=== PATIENT | female | born 1950 | race Caucasian/White ===

== ENCOUNTER 2017-01-20 05:07 | Inpatient (IN) | payer OTHER ==
[2017-01-02 11:42] VITALS: BMI 28.0
--- NOTE | 2017-01-02 12:13 | PAT Medication Instructions ---
Service Date Jan 02, 2017. Current Home Medication List Gabapentin (Neurontin), 100 MG PO TID Hydrochlorothiazide (Hctz), 25 MG PO QAM Hydrocodone/Acetaminophen 5MG/325MG ([place] 5MG/325MG), 0.5-1 TAB PO PRN PRN for Pain Ibuprofen Tab (Advil), 400 MG PO PRN Loratadine (Claritin), 10 MG PO PRN Multivitamin (Multivitamin), 1 TAB PO QAM Naproxen (Aleve), 220 MG PO PRN Pravastatin Sod (Pravastatin Sodium), 40 MG PO HS Medication Instructions For Your Scheduled Surgery - Hold the following medications the morning of surgery: Hydrochlorothiazide (Hctz), 25 MG PO QAM Loratadine (Claritin), 10 MG PO PRN Multivitamin (Multivitamin), 1 TAB PO QAM Ibuprofen Tab (Advil), 400 MG PO PRN (otherwise okay to continue per surgeon) Naproxen (Aleve), 220 MG PO PRN(otherwise okay to continue per surgeon) - Take the following medications the morning of surgery with a sip of water OTHERWISE NOTHING TO EAT OR DRINK AFTER MIDNIGHT: Hydrocodone/Acetaminophen 5MG/325MG ([place] 5MG/325MG), 0.5-1 TAB PO PRN PRN for Pain (may take if needed up to 4 hours prior to surgery) Gabapentin (Neurontin), 100 MG PO TID - Take the following medications as scheduled the night before surgery: Hydrocodone/Acetaminophen 5MG/325MG ([place] 5MG/325MG), 0.5-1 TAB PO PRN PRN for Pain Gabapentin (Neurontin), 100 MG PO TID Pravastatin Sod (Pravastatin Sodium), 40 MG PO HS If you have any questions please call us at [phone] or [phone] or [phone]
[2017-01-02 13:23] LABS: URINE APPEARANCE CLEAR (CLEAR); URINE BILIRUBIN NEG (NEG); URINE COLOR YELLOW; URINE NITRITE NEG (NEG); URINE SPECIFIC GRAVITY 1.018 (1.000-1.030); UROBILINOGEN NEG (NEG)
[2017-01-02 13:24] LABS: PARTIAL THROMBOPLASTIN RATIO 1.1; PROTHROMBIN TIME (PATIENT) 10.5 SECONDS (9.0-12.0)
[2017-01-02 13:30] LABS: BASO % 0.4 %; BASO ABS # 0.02 K/uL (0-0.2); BUN/CREATININE RATIO 26.9 (10-20); CALCIUM 8.9 mg/dl (8.5-10.1); COMPLETE YES; CREATININE 0.67 mg/dl (0.60-1.20); EOS % 1.2 %; IG% 0.2 %; LYMPH ABS # 2.34 K/uL (1.2-3.4); MEAN CELL VOLUME 94.3 fL (80-100); MEAN CORPUSCULAR HGB CONC 33.9 g/dl (32-36); MEAN PLATELET VOLUME 9.5 fL (7.4-10.4); MONO % 8.5 %; NEUT % 44.7 %; PLATELET COUNT 362 K/uL (130-400); POTASSIUM 3.6 mmol/L (3.5-5.1)
[2017-01-02 13:31] LABS: MANUAL MICROSCOPIC REQUIRED? NO; REVIEW REQ? NO
[2017-01-02 13:33] LABS: ALB/GLOB RATIO 1.4 (0.9-2)
--- NOTE | 2017-01-18 17:06 | History and Physical ---
History & Physical Date Jan 18, 2017. Chief Complaint RIGHT KNEE PAIN History of Present Illness The patient is a 67 year old female with complaints of for about 3 years now. Has tried all forms of other conservative therapy with minimal relief. Life has been terrible, limping and using a cane. Pt is ready for TKA Additional History Hepatic Disease: No Endocrine Disorder: No Kidney Disease: No Hypertension: Yes Heart Disease: No Bleeding Tendencies: No Infectious Diseases: No Other: sleep apnea Allergies Coded Allergies: No Known Allergies (Unverified , 01/02/17) Home Medications Scheduled Gabapentin (Neurontin), 100 MG PO TID Hydrochlorothiazide (Hctz), 25 MG PO QAM Ibuprofen Tab (Advil), 400 MG PO PRN Loratadine (Claritin), 10 MG PO PRN Multivitamin (Multivitamin), 1 TAB PO QAM Naproxen (Aleve), 220 MG PO PRN Pravastatin Sod (Pravastatin Sodium), 40 MG PO HS Scheduled PRN Hydrocodone/Acetaminophen 5MG/325MG ([place] 5MG/325MG), 0.5-1 TAB PO PRN PRN for Pain Physical Examination Skin: warm/dry, no rash Eyes: normal inspection, EOMI, sclerae normal ENT: normal ENT inspection, pharynx normal Head: normocephalic, atraumatic Neck: supple, no adenopathy, trachea midline Respiratory/Chest: lungs clear, normal breath sounds, no respiratory distress Cardiovascular: regular rate, rhythm, no edema, no murmur Abdomen / GI: normal bowel sounds, non tender Back: normal inspection Extremities: normal inspection, normal range of motion, + pertinent finding ( pain and crepitation with rom right knee) Diagnosis DJD RIGHT KNEE Plan of Treatment PLAN IS ADMIT AND RIGHT TOTAL KNEE REPLACEMENT
[~2017-01-20] VITALS: Ht 152.4 cm; Wt 71.0 kg
[2017-01-20] VITALS (11 sets, daily range): BP systolic 92–150; BP diastolic 51–80; PULSE 54–82; TEMP 36.6–36.9; O2SAT 93–99; Ht 152.4 cm; Wt 71.0 kg
[~2017-01-20 05:07] MED LIST: CLR10 PO; GABA-112 PO; HYDR-5688 PO; HYDR25TA4 PO; IBUP-103 PO; MULT-506 PO; NAPR1TAB9 PO; PRVC40 PO
[2017-01-20] MEDS ORDERED: LACTATED RINGER'S 1000ML 500 ML IV ONE (06:00)
[2017-01-20] MEDS ORDERED: CEFAZOLIN 1000MG/55 ML D5W 55 ML IV SCH (06:00)
[2017-01-20] MEDS ORDERED: LACTATED RINGER'S 1000ML 1,000 ML IV SCH ×2 (06:00)
[2017-01-20] MEDS ORDERED: CeleBREX 200 MG CAP PO SCH (06:00)
[2017-01-20] MEDS ORDERED: ROPIVACAINE 5MG/ML 30 ML 150 MG, BUPIVACAINE/EPINEPHR 0.5% MPF 30 ML, KETOROLAC TROMETH... INFIL SCH ×7 (06:00)
[2017-01-20] MEDS ORDERED: FAMOTIDINE 20 MG TAB PO SCH (06:00)
[2017-01-20] MEDS ORDERED: ACETAMINOPHEN 500 MG TAB PO SCH (06:00)
[2017-01-20] MEDS ORDERED: DEXAMETHASONE 4 MG TAB PO SCH (06:00)
[2017-01-20] MEDS ORDERED: METOCLOPRAMIDE HCL 10 MG TAB PO SCH (06:00)
[2017-01-20] MEDS: TRANEXAMIC ACID INJ 1,000 MG in SODIUM CHLORIDE 0.9% 100ML 100 ML IV SCH ×2 (06:03→06:30)
[2017-01-20] MEDS ORDERED: POVIDONE-IODINE OP SOLN 30 ML BTL ONE (06:33)
[2017-01-20] MEDS ORDERED: BACITRACIN 50000 UNIT VIAL ONE (06:33)
[2017-01-20] MEDS ORDERED: ORTHO JOINT ANESTHETIC ONE (06:33)
[2017-01-20] MEDS ORDERED: LIDOCAINE HCL 2% 2 ML VIAL (20MG/ML) ONE (06:40)
[2017-01-20] MEDS ORDERED: MIDAZOLAM HCL 1 MG/ML 2ML VIAL ONE (06:40)
[2017-01-20] MEDS ORDERED: PROPOFOL IV EMULSION 10 MG/ML 20 ML VIAL IV ONE (06:40)
--- NOTE | 2017-01-20 06:49 | History & Physical Bridge Note ---
H&P Re-Evaluation Bridge Note: I have examined the patient, reviewed the History & Physical and in the interval since the performance of the History & Physical I have noted the following changes of clinical significance: No changes noted
[2017-01-20] MEDS ORDERED: BUPIVACAINE 0.25% 30 ML VIAL ONE (06:54)
[2017-01-20] MEDS ORDERED: BUPIVACAINE 0.5 % 5 MG/1 ML PF 10ML VIAL ONE (06:54)
[2017-01-20] MEDS ORDERED: EpINEphrine INJ 1MG/ML AMP 1 MG/ML AMP ONE (06:54)
[2017-01-20] MEDS ORDERED: ONDANSETRON INJ 2 MG/ML 2 ML VIAL ONE (07:25)
[2017-01-20] MEDS ORDERED: PHENYLEPHRINE 100MCG/ML 5ML SYR ONE (07:49)
[2017-01-20] MEDS ORDERED: PHENYLEPHRINE 100MCG/ML 5ML SYR IV PRN (08:00)
[2017-01-20] MEDS ORDERED: EpHEDrine SULFATE INJ 50 MG/ML AMP IV PRN (08:00)
[2017-01-20] MEDS ORDERED: HYDROmorphone INJ 2 MG/ML SYR/VIAL IV PRN (08:00)
[2017-01-20] MEDS ORDERED: NALOXONE HCL 0.4 MG/1 ML VIAL/CARP IV PRN (08:00)
[2017-01-20] MEDS ORDERED: FLUMAZENIL 0.1 MG/1 ML 10 ML VIAL IV PRN (08:00)
[2017-01-20] MEDS ORDERED: ONDANSETRON INJ 2 MG/ML 2 ML VIAL IV PRN (08:00)
[2017-01-20] MEDS ORDERED: ATROPINE SULFATE 0.1 MG/ML 5ML SYR IV PRN (08:00)
[2017-01-20] MEDS ORDERED: MEPERIDINE HCL 25 MG/ML CARP IV PRN (08:00)
[2017-01-20] MEDS ORDERED: FENTANYL CITRATE INJ 50 MCG/1 ML 2 ML VIAL IV PRN (08:00)
[2017-01-20] MEDS ORDERED: LABETALOL HCL IV 5 MG/ML 20ML IV PRN (08:00)
[2017-01-20] MEDS: SODIUM CHLORIDE 0.9% 1000ML 1,000 ML IV SCH ×2 (08:14→18:23)
[2017-01-20] MEDS ORDERED: ALUMINUM/MAGNESIUM/SIMETH (MAALOX MAX) 30 ML UDC PO PRN (08:15)
[2017-01-20] MEDS ORDERED: BISACODYL 10 MG SUPP PR PRN (08:15)
[2017-01-20] MEDS ORDERED: MAGNESIUM HYDROXIDE SUSP 30 ML UDC PO PRN (08:15)
[2017-01-20] MEDS ORDERED: ZOLPIDEM TARTRATE 5 MG TAB PO PRN (08:15)
--- NOTE | 2017-01-20 08:21 | [facility] Post Operative Brief Note ---
Immediate Operative Summary Operative Date Jan 20, 2017. Pre-Operative Diagnosis Degenerative Joint Disease Right Knee Post-Operative Diagnosis Degenerative Joint Disease Right Knee Procedure(s) Performed Right Total Knee Arthroplasty Surgeon Dr. Casper After School Program Assistant Surgeon(s) KAE Brand Estimated Blood Loss 30 ml Findings As above Specimens A. Right Knee Bone and Tissue Complication(s) None Disposition Recovery Room / PACU
[2017-01-20] MEDS ORDERED: METOPROLOL TARTRATE 1 MG/ML VIAL ONE (08:49)
[2017-01-20] MEDS ORDERED: METOPROLOL TARTRATE 1 MG/ML VIAL IV STA (08:51)
--- NOTE | 2017-01-20 09:42 | [facility] Operative Report ---
Operative Report Operative Date Jan 20, 2017. Pre-Operative Diagnosis Degenerative Joint Disease Right Knee Post-Operative Diagnosis Degenerative Joint Disease Right Knee Procedure(s) Performed Right Total Knee Arthroplasty Surgeon Dr. Casper Rotary Swaging Machine Operator Surgeon(s) KAE Brand Estimated Blood Loss 30 ml Findings As above Specimens A. Right Knee Bone and Tissue Complication(s) None Disposition Recovery Room / PACU Description of Procedure IMPLANTS USED: [employer]hew journey 2 knee size 3 cemented femoral component, a size 2 tibial component, a size 10 PS insert and a size 29 all polyethylene patella INDICATIONS: pleasant (female) who has unfortunately failed all forms of conservative measures. Therefore, they have decided to undergo elective surgical intervention. All risks and benefits of the surgery were discussed with the patient and the family in entirety. PROCEDURE: The patient was brought to the operating room and properly identified by myself, anesthesia, and staff. Patient was given a spinal anesthesia and placed on the operating table in the supine position. . The leg was then prepped and draped in usual sterile fashion. We made a standard midline approach over the patella and dissected down through the subcutaneous tissue to identify the capsule and performed a medial capsulotomy with the patella everted and the knee flexed.The patient matched implant was then put onto the femur. The femur measured to be a size [3]. This was then put into place. We made the appropriate cuts and then placed a retractor behind the proximal tibia to retract anteriorly. We then placed the patient matched knee implant on the tibia. It measured to be a size [2]. A size[2] guide was then put in place. We used the tibial punch then put the trial components into place. We had very good range of motion, excellent stability, and excellent patella tracking. We removed the trial components and irrigated the wound. We impacted the components in place using antibiotic cement. All excess cement was removed. We then irrigated the wound once more. We closed the capsule with 0 PDS suture, deep dermis and 2-0 Vicryl, and finally the skin with cordell. A sterile dressing was applied. The patient was taken to the recovery room in stable condition. Due to the complex nature of the procedure, the entire surgery was performed with the operational assistance of [the (KAE-Andres)]. The bookkeeping assistant was under direct supervision, was involved in the actual performance of all aspects of the surgical procedure including hemostasis, tissue retraction and incision, instrument management, patient positioning, and wound closure. I attest to the content of the Intraoperative Record and any orders documented therein. Any exceptions are noted below.
[2017-01-20] MEDS ORDERED: LORATADINE 10 MG TAB PO PRN (09:45)
--- NOTE | 2017-01-20 09:51 | Anesthesiology Progress Note ---
Anesthesia Post Op Note Date & Time Jan 20, 2017 at 09:42 Vital Signs Pain Intensity: 0 Vital Signs Past 12 Hours Date Time Temp Pulse Resp B/P (MAP) Pulse Ox O2 Delivery O2 Flow Rate FiO2 01/20/17 09:20 88 16 122/54 99 Nasal Cannula 4 01/20/17 09:10 87 16 121/54 99 Nasal Cannula 4 01/20/17 09:00 84 16 128/57 96 Nasal Cannula 4 01/20/17 08:50 100 16 122/53 96 Nasal Cannula 4 01/20/17 08:40 37.2 106 16 151/56 96 Nasal Cannula 4 01/20/17 05:31 36.7 72 20 150/80 99 Room Air Notes Mental Status: alert / awake / arousable Pt Amnestic to Procedure: Yes Nausea / Vomiting: adequately controlled Pain: adequately controlled Airway Patency, RR, SpO2: stable & adequate BP & HR: see Notes Hydration State: stable & adequate Neuraxial Anesthesia: was administered, sensory block is resolving Anesthetic Complications: no major complications apparent The patient had a stress test from one year ago that showed some lateral ischemia, however she was asymptomatic at the time so no further interventions were performed. She was considered to be an intermediate risk from a cardiac standpoint for her surgery today. The patient tolerated the adductor block and spinal anesthetic well. She was noted by the INSURANCE ADMINISTRATIVE ASSISTANT to have some slight ST depressions on her rhythm strip in the OR. She was otherwise asymptomatic. Her HR was maintained between the 80s and 90s and her SBP remained in the 100s to 110s with occasional boluses of phenylephrine. Upon arrival to the PACU, her SBP was in the 130s with HR in the 100s so she was given metoprolol 5 mg IV and a 500 ml bolus of LR. Her HR came down to the 80s with SBP 120s. A 12 lead EKG was obtained which showed some ST and T wave abnormalities in the inferior leads with some similarities to her preoperative EKG. The patient remained comfortable and asymptomatic with no chest pain or SOB. Due to her history, cardiology was consulted. Murray Salgado came to evaluate the patient and he agrees that she should be monitored on telemetry overnight. He will also check any necessary labs and will follow her on the floor.
[2017-01-20] MEDS ORDERED: METOPROLOL TARTRATE 25 MG TAB PO ONE (10:44)
[2017-01-20] MEDS: GABAPENTIN 100 MG CAP PO SCH ×2 (13:19→19:46)
[2017-01-20] MEDS: DOCUSATE SODIUM 100 MG CAP PO SCH ×2 (13:19→19:45)
[2017-01-20] MEDS: ACETAMINOPHEN 500 MG TAB PO SCH ×2 (13:20→21:48)
--- NOTE | 2017-01-20 13:46 | CARDIOLOGY CONSULTATION REPORT ---
DATE OF CONSULTATION: 01/20/2017 REASON FOR CONSULTATION: 1. Abnormal EKG during right TKA and in the PACU. 2. Abnormal Stress Cardiolite, 01/09/2016 showing a small area of lateral ischemia. 3. Hypertension. 4. Dyslipidemia. HISTORY OF PRESENT ILLNESS: Mrs. Paniagua is a very pleasant 67-year-old white female with a history of sleep apnea, hypertension, dyslipidemia, osteoarthritis, and an abnormal nuclear stress test in December 2015 (showing a small area of lateral ischemia, rest LVEF 64%, and stress LVEF greater than 75% with normal wall motion), who underwent a right TKA earlier today with Dr. Casper. During her procedure, she was noted to have some ST depression on her monitor, downsloping to horizontal ST segment depression in leads II, aVF, and V3 through V6 -- consider inferior/inferolateral ischemia. The patient has been hemodynamically stable intraoperatively and postoperatively and has absolutely no symptoms suggestive of angina pectoris. She specifically denies any chest pain, heaviness, tightness, pressure, or discomfort. She denies any neck, jaw, back, arm, or thoracic discomfort. She denies any nausea, vomiting, or diaphoresis. She denies any shortness of breath, orthopnea, or PND. She denies any palpitations, tachypalpitations, syncope, or near syncope. The patient had nuclear stress test done as described above because she was having trouble with her foot and also had apparently some dyspnea. However, when evaluated by her cardiologists - she was completely asymptomatic. Therefore, medical management was recommended. The patient has not experienced any limiting cardiopulmonary symptoms leading up to a hospitalization or this surgery. She has had the following Cardiac Procedures / Studies: 1. Exercise Cardiolite test on 01/09/2016. The patient exercised for 5 minutes and 31 seconds on a standard Hammad protocol, obtaining 7 mets (89% of MPHR) with a markedly hypertensive blood pressure response to exercise. Her resting EKG and stress EKG were unremarkable. No changes noted. Pre and post stress nuclear images were undertaken. Resting perfusion appeared normal. Following exercise, there was a defect in the lateral segment, which was reversible, but gaited imaging showed hyperdynamic LV wall motion (including lateral segment) and an LVEF calculated at greater than 75%. Medical management was recommended. 2. Echocardiogram performed on 09/20/2016: a. LVEF 65%. b. Normal LV diastolic function. c. Trace tricuspid regurgitation. d. Normal wall motion. e. No pericardial effusions. PAST MEDICAL HISTORY: 1. Sleep apnea as noted above. 2. Hypertension. 3. Dyslipidemia. 4. History of cholecystectomy in 1969. 5. History of complete hysterectomy in 2000. 6. History of a cystocele with AP repair in 2004. 7. Repeat gynecologic repair surgery in 2005. 8. History of microdiskectomy in 2015. SOCIAL HISTORY: The patient is and lives with her in [place], [place]. She is a lifelong nonsmoker. Does not drink alcohol. FAMILY HISTORY: Father diseased at the age of 51 with hypertension and stroke. Mother is still living at age of 93. She has heart disease and a prior stroke. She has 4 brothers, 1 sister, 2 sons and 1 daughter, all of whom are healthy. Brother with sleep apnea, hypertension, and heart surgery. MEDICATIONS: As listed. ALLERGIES: NKDA. PHYSICAL EXAMINATION: VITAL SIGNS: Temperature is 37.1 degrees Celsius, pulse is 88 and regular, respiratory rate is 16 and unlabored and blood pressure is 108/51. GENERAL: The patient is in no acute distress. She is currently being seen in the PACU. HEAD, EYES, EARS, NOSE, AND THROAT: Head is atraumatic and normocephalic. EOMs intact. Sclera are anicteric. Face is symmetric. No perioral cyanosis. Mucous membranes moist. NECK: Without thyromegaly, adenopathy or JVD. Carotid upstrokes +2 bilaterally without bruits. CHEST AND LUNGS: Clear to auscultation throughout all lung zabala. No wheezes, rales or rhonchi. CARDIOVASCULAR SYSTEM: S1 and S2 are regular without murmur, gallop or rub. PMI is nondisplaced. No lifts, heaves, or thrills. No abdominal, aortic or renal bruits. ABDOMINAL EXAMINATION: Bowel sounds present. No masses, organomegaly, or tenderness. EXTREMITIES: Without clubbing, cyanosis, or edema. Right leg dressed with an ice pack on her right knee. NEUROLOGIC EXAMINATION: The patient is awake, alert and oriented. Pleasant and cooperative. Answers questions appropriately. Speech is clear. Normal movement in bilateral upper extremities. Today's EKG, nuclear stress test in December 2015 as described above, and echocardiogram in August 2016 as described above. LABORATORY DATA: Troponin I level is pending. CBC with diff and basic metabolic panel are pending. ASSESSMENT: 1. Inferolateral ST segment depression intraoperatively and postoperatively, of uncertain clinical significance as the patient is completely asymptomatic. 2. History of an abnormal exercise nuclear stress test in December 2015, showing a small area of lateral ischemia, but normal wall motion. 3. Hypertension. 4. Dyslipidemia. 5. History of sleep apnea. 6. Postoperative day #0 right TKA. 7. Mild preoperative anemia. 8. No angina pectoris or anginal equivalent symptoms. 9. No overt signs or symptoms of heart failure. 10. No symptoms suggestive of dysrhythmia. PLAN: 1. The patient is completely asymptomatic, but considering she had an abnormal stress test, suggesting lateral ischemia within the past year, and an ST segment changes with surgery today, would recommend admitting to telemetry floor for monitoring for 24 hours. 2. Check cardiac enzymes. 3. Monitor daily H&H and PRP. 4. Continue Pravastatin 40 mg daily. 5. Continue HCTZ 25 mg daily. 6. Begin Aspirin 81 mg daily. 7. Add Lopressor 25 mg b.i.d. 8. If the patient has any angina pectoris or anginal equivalent symptoms -- would recommend further workup for myocardial ischemia. 9. We will continue to follow closely while hospitalized. NUNU
[2017-01-20] MEDS ORDERED: TRANEXAMIC ACID INJ 1,000 MG in SODIUM CHLORIDE 0.9% 100ML 100 ML IV SCH (14:30)
[2017-01-20] MEDS: CEFAZOLIN IV 2,000 MG in DEXTROSE 5% 50ML 50 ML IV SCH ×2 (15:30→23:42)
[2017-01-20] MEDS ORDERED: ASPIRIN 81 MG ECTAB PO ONE (15:30)
[2017-01-20] MEDS ORDERED: ATORVASTATIN 40 MG TAB PO ONE (16:45)
--- NOTE | 2017-01-20 17:56 | ECHOCARDIOGRAM REPORT ---
*NOTICE TO RECEIVING CONSTITUTION PARTY AGENCY This information is strictly Confidential and protected under [place] law. [place] law prohibits you from making any further disclosure of this information unless further disclosure is expressly permitted by the written consent of the person to whom it pertains or is authorized by law. A general authorization for the release of medical or other information is not sufficient for this purpose. Hospital accepts no responsibility if the information is made available to any other person, INCLUDING THE PATIENT. Interpretation Summary * Name: ALEXIS ROGERS Study Date: 01/20/2017 04:02 PM BP: 105/56 mmHg * Patient Location: C.2T\S\S242\S\2 HR: 55 * : 1950 (M/d/yyy) Gender: Female Height: 60 in * Age: 67 yrs Ethnicity: CA Weight: 147 lb * Ordering Physician: Murray Salgado * Referring Physician: Garcia Casper * Performed By: Lazaro Sanchez RCS * * Reason For Study: INFEROLATERAL ST DEPRESSION / ELEVATED TROP * BSA: 1.6 m2 * -- Conclusions -- * Left ventricular systolic function is normal. * Grade I diastolic dysfunction, (abnormal relaxation pattern). * The right ventricular systolic function is normal. * Mild aortic regurgitation. * Right ventricular systolic pressure is normal. Procedure Details * A complete two-dimensional transthoracic echocardiogram was performed (2D, M-mode, Doppler and color flow Doppler). Left Ventricle * The left ventricle is normal in size. * There is normal left ventricular wall thickness. * Left ventricular systolic function is normal. * Grade I diastolic dysfunction, (abnormal relaxation pattern). * Ejection Fraction = 60-65%. * The left ventricular wall motion is normal. Right Ventricle * The right ventricle is grossly normal size. * The right ventricular systolic function is normal. Atria * The left atrium is not well visualized. * Right atrial size is normal. Mitral Valve * The mitral valve is grossly normal. * Significant mitral regurgitation is absent. Tricuspid Valve * The tricuspid valve is not well visualized, but is grossly normal. * There is trace tricuspid regurgitation. * Right ventricular systolic pressure is normal. Aortic Valve * The aortic valve is not well visualized. * No hemodynamically significant valvular aortic stenosis. * Mild aortic regurgitation. Great Vessels * The aortic root is normal size. Pericardium/Pleural * There is no pericardial effusion. Great Vessels * Normal inferior vena cava diameter and respiratory variation suggests normal central venous pressure. MMode 2D Measurements and Calculations IVSd 0.81 cm IVSs 1.2 cm LVIDd 3.6 cm LVIDs 3.0 cm LVPWd 1.0 cm LVPWs 1.1 cm IVS/LVPW 0.77 FS 16.0 % EDV(Teich) 55.5 ml ESV(Teich) 36.4 ml EF(Teich) 34.3 % EDV(cubed) 47.8 ml ESV(cubed) 28.4 ml EF(cubed) 40.6 % % IVS thick 46.9 % % LVPW thick 3.0 % LV mass(C)d 97.6 grams LV mass(C)dI 59.6 grams/m\S\2 LV mass(C)s 101.5 grams LV mass(C)sI 62.0 grams/m\S\2 CO(Teich) 1.0 l/min CI(Teich) 0.64 l/min/m\S\2 SV(Teich) 19.1 ml SI(Teich) 11.6 ml/m\S\2 CO(cubed) 1.1 l/min CI(cubed) 0.65 l/min/m\S\2 SV(cubed) 19.4 ml SI(cubed) 11.9 ml/m\S\2 Ao root diam 2.8 cm Ao root area 6.1 cm\S\2 LVAd ap4 32.0 cm\S\2 LVLd ap4 8.2 cm EDV(MOD-sp4) 102.0 ml LVAs ap4 16.1 cm\S\2 LVLs ap4 6.7 cm ESV(MOD-sp4) 33.0 ml EF(MOD-sp4) 67.6 % LVAd ap2 30.2 cm\S\2 LVLd ap2 8.2 cm EDV(MOD-sp2) 91.0 ml LVAs ap2 16.4 cm\S\2 LVLs ap2 6.5 cm ESV(MOD-sp2) 33.0 ml EF(MOD-sp2) 63.7 % CO(MOD-sp4) 3.8 l/min CI(MOD-sp4) 2.3 l/min/m\S\2 SV(MOD-sp4) 69.0 ml SI(MOD-sp4) 42.1 ml/m\S\2 CO(MOD-sp2) 3.2 l/min CI(MOD-sp2) 1.9 l/min/m\S\2 SV(MOD-sp2) 58.0 ml SI(MOD-sp2) 35.4 ml/m\S\2 Doppler Measurements and Calculations MV E max brent 103.6 cm/sec MV A max brent 127.8 cm/sec MV E/A 0.81 MV P1/2t max brent 148.6 cm/sec MV P1/2t 70.1 msec MVA(P1/2t) 3.1 cm\S\2 MV dec slope 621.4 cm/sec\S\2 MV dec time 0.21 sec Ao V2 max 139.1 cm/sec Ao max PG 7.7 mmHg Ao max PG (full) 3.3 mmHg LV V1 max PG 4.5 mmHg LV V1 max 105.8 cm/sec PA V2 max 90.7 cm/sec PA max PG 3.3 mmHg PI max brent 149.3 cm/sec PI max PG 8.9 mmHg PI dec slope 306.7 cm/sec\S\2 PI P1/2t 142.6 msec TR max brent 221.6 cm/sec
[2017-01-20] MEDS: OXYCODONE HCL IR 5 MG TAB (IMMEDIATE RELEASE) PO PRN (19:46)
[2017-01-20] MEDS: ASPIRIN 81 MG ECTAB PO SCH (19:47)
[2017-01-20] MEDS ORDERED: METOPROLOL TARTRATE 25 MG TAB PO SCH (21:00)
[2017-01-20] MEDS ORDERED: PRAVASTATIN SOD 40 MG TAB PO SCH (21:00)
[2017-01-21] VITALS (7 sets, daily range): BP systolic 113–135; BP diastolic 60–72; PULSE 50–68; TEMP 36.4–37; O2SAT 95–98
[2017-01-21] MEDS: SODIUM CHLORIDE 0.9% 1000ML 1,000 ML IV SCH (04:33)
[2017-01-21] MEDS: OXYCODONE HCL IR 5 MG TAB (IMMEDIATE RELEASE) PO PRN ×3 (06:27→18:04)
[2017-01-21] MEDS: ACETAMINOPHEN 500 MG TAB PO SCH ×3 (06:28→21:14)
[2017-01-21] MEDS ORDERED: DEXAMETHASONE INJ 10 MG in SYRINGE 0 ML IV SCH (07:30)
[2017-01-21] MEDS: ASPIRIN 81 MG ECTAB PO SCH ×2 (07:32→21:13)
[2017-01-21] MEDS: HYDROCHLOROTHIAZIDE 25 MG TAB PO SCH (07:32)
[2017-01-21] MEDS: DOCUSATE SODIUM 100 MG CAP PO SCH ×2 (07:32→21:13)
[2017-01-21] MEDS: GABAPENTIN 100 MG CAP PO SCH ×3 (07:33→21:13)
[2017-01-21] MEDS: ONDANSETRON INJ 2 MG/ML 2 ML VIAL IV PRN ×2 (07:35→21:29)
--- NOTE | 2017-01-21 09:44 | CARDIOLOGY PROGRESS NOTE ---
DATE: 01/21/2017 HISTORY OF PRESENT ILLNESS: Ms. Paniagua is a very pleasant 67-year-old white female with a history of sleep apnea, hypertension, dyslipidemia, and osteoarthritis and an abnormal nuclear stress test in December 2015 (showing a small area of lateral ischemia, rest LVEF 64% and stress LVEF of greater than 75% with normal motion), who underwent a right TKA yesterday. During her surgical procedure, she was noted to have ST depressions on her monitor leads. She subsequently underwent an EKG, which showed downsloping to horizontal ST segment depression in leads 2, aVF and V3 through V6 -- consider inferior/inferolateral ischemia. I saw her in the PACU, she was completely asymptomatic and denied any chest discomfort, angina pectoris, chest pain, dyspnea, nausea, vomiting, or diaphoresis. Unfortunately, her troponin I levels did come back elevated at 0.83, peaked at 0.102, and is now trending back down at 0.079 ng/mL. Therefore, the patient was placed on telemetry overnight. Her heart rhythm has remained stable, although she was mildly bradycardic on beta kalina. Her echocardiogram showed normal LVEF without regional wall motion abnormalities and she remains completely asymptomatic from a cardiac standpoint. The patient's knee pain is controlled. She offers no complaints at this time. She specifically denies any chest pain, heaviness, tightness, pressure, or chest discomfort. She denies any exertional neck, jaw, back, or arm pain. No shortness of breath, unusual dyspnea on exertion, orthopnea or PND. No palpitations, tachypalpitations, syncope, or near syncope. PHYSICAL EXAMINATION: VITAL SIGNS: Temperature is 36.5 degrees Celsius, pulse is 50 and regular, respiratory rate is 16 and unlabored, blood pressure is 117/66 and SpO2 is 97% on room air. I's and O's positive 3600 mL. GENERAL: The patient is in no acute distress. HEENT: Head is atraumatic and normocephalic. EOMs intact. Sclerae are anicteric. Face is symmetric. No perioral cyanosis. Mucous membranes moist. NECK: Without thyromegaly, adenopathy or JVD. Carotid upstrokes +2 bilaterally without bruits. CHEST AND LUNGS: Clear to auscultation throughout all lung zabala. No wheezes, rales or rhonchi. CARDIOVASCULAR: S1 and S2 are regular without murmur, gallop or rub. PMI is nondisplaced. No lifts, heaves, or thrills. No abdominal, aortic or renal bruits. ABDOMEN: Bowel sounds present. EXTREMITIES: Without clubbing, cyanosis or edema. Right knee is dressed. NEUROLOGIC: The patient is awake, alert and oriented. Pleasant and cooperative. Answers questions appropriately. Speech is clear. Normal movement in bilateral upper extremities. LABORATORY DATA: CBC with diff pending. Basic metabolic pending. Troponin I level 0.079, 0.102, and 0.083 ng/mL. Echocardiogram performed on 01/20/2017 shows normal LV size and systolic function, LVEF 60%-65% without regional wall motion abnormalities. Grade 1 diastolic dysfunction. Normal RV systolic function. Mild AI. No significant valvular abnormalities. ASSESSMENT: 1. Elevated troponin I with intraoperative inferolateral ST segment depression in a patient with suspected underlying CAD (based on December 2015 nuclear stress test). 2. Presumed CAD. 3. Hypertension. 4. Dyslipidemia. 5. Postoperative day #1 right total knee arthroplasty. 6. No angina pectoris or anginal equivalent symptoms. 7. No signs or symptoms of heart failure. 8. No symptoms suggestive of dysrhythmia. 9. Beta kalina induced bradycardia, asymptomatic. PLAN: 1. At this point, I have discussed her situation at length. As she is completely asymptomatic and has no regional wall motion abnormalities, would not pursue further invasive evaluation at this time. However, if symptoms arise as she continues to recover from her knee surgery that are consistent with angina pectoris or anginal equivalent symptoms, would pursue invasive workup at that time. 2. I have, however, stressed the importance of medically managing her as though she does have underlying CAD. 3. Continue Aspirin 81 mg daily indefinitely. 4. Continue Lipitor 40 mg daily indefinitely (I switched her from pravastatin to atorvastatin). 5. Continue beta kalina. She will be converted from Lopressor 25 mg b.i.d. to Toprol-XL 12.5 mg once daily -- Dose lowered due to bradycardia. 6. Continue HCTZ. 7. Monitor daily laboratories. 8. The patient may be transferred to orthopedic floor. There is no need for further telemetry monitoring. 9. We will continue to follow along while hospitalized. NUNU
--- NOTE | 2017-01-21 10:13 | Anesthesiology Progress Note ---
Anesthesia Progress Note Date of Service Jan 21, 2017. Progress Notes The patient is POD #1 s/p R TKA. The patient was noted to have a Troponin leak with a peak of 0.102 overnight which is now trending back down. She had an echocardiogram that showed no wall motion abnormalities. The patient has remained asymptomatic from a cardiac standpoint. She has had no chest pain, SOB , or diaphoresis. She has been very comfortable and has minimal surgical site pain. She has been bradycardic HR in the 50s but her pressure has been mostly normotensive. On exam her lungs are clear and her heart is RRR. The patient likely has some underlying coronary artery disease as evidenced by her stress test from one year ago. She has been started on a daily aspirin and has had her cardiac medicine adjusted by the cardiology service. The patient was counseled to be vigilant for any anginal symptoms including chest pain or tightness, SOB, N/V, or diaphoresis especially with exertion. If any of these symptoms develop, she is to let her nurse know immediately if she is in the hospital or go to the ER if she is at home to which she agreed.
--- NOTE | 2017-01-21 12:27 | Orthopedic Progress Note ---
Orthopedic Progress Note Date of Service Jan 21, 2017. Subjective Post OP Day: 1 Reports: feeling well, complaints (mild pain in the back of the knee) Objective calves soft nontender, N/V intact, dressing C/D/I, A&O x3, toes mobile Date Time Temp Pulse Resp B/P (MAP) Pulse Ox O2 Delivery O2 Flow Rate FiO2 01/21/17 12:09 Room Air 01/21/17 10:52 36.7 56 20 130/61 (84) 95 Room Air 01/21/17 08:01 Room Air 01/21/17 06:55 36.5 50 18 117/66 (83) 97 Room Air 01/21/17 04:15 36.5 50 18 135/65 (88) 98 Nasal Cannula 01/21/17 04:00 Nasal Cannula 2.0 01/21/17 00:01 Nasal Cannula 2.0 01/20/17 23:51 36.6 54 18 92/51 (65) 99 Nasal Cannula 2.0 01/20/17 20:00 Nasal Cannula 2.0 01/20/17 19:41 36.7 59 20 122/64 (83) 97 Nasal Cannula 2.0 01/20/17 16:27 99 Nasal Cannula 2.0 01/20/17 15:10 36.8 56 20 105/56 (72) 99 Nasal Cannula 2.0 01/20/17 14:30 36.9 62 20 96/58 (71) 99 Nasal Cannula 2.0 01/20/17 13:30 36.9 60 20 105/58 (74) 99 Nasal Cannula 2.0 01/20/17 12:30 36.9 59 20 97/51 (66) 99 Nasal Cannula 2.0 Assessment & Plan Assessment: POD 1 s/p Right TKA Per Cardiology Service: 1. Elevated troponin I with intraoperative inferolateral ST segment depression in a patient with suspected underlying CAD (based on December 2015 nuclear stress test). 2. Presumed CAD. 3. Hypertension. 4. Dyslipidemia. 5. Postoperative day #1 right total knee arthroplasty. 6. No angina pectoris or anginal equivalent symptoms. 7. No signs or symptoms of heart failure. 8. No symptoms suggestive of dysrhythmia. 9. Beta kalina induced bradycardia, asymptomatic. Plan: Pt uneasy about going home especially after talking to Cardiology today about her likely CAD. States that Cards is changing some of her meds around today. She feels she did ok in PT but would like to continue PT here one more day. Will discuss with Cards about any med changes. Continue current protocol [place] [facility] [place] Health Services Inhouse Planning Pain Management: PO Tylenol, Oxy IR DVT Prophylaxis: FATMATA Holleys, ASA Discharge Planning Discharge Planning: home with home health Pain Management: PO Tylenol, Oxy IR DVT Prophylaxis: WOOD Holley Therapy: Physical Therapy
[2017-01-21] MEDS: ATORVASTATIN 40 MG TAB PO SCH (12:33)
[2017-01-22] MEDS: OXYCODONE HCL IR 5 MG TAB (IMMEDIATE RELEASE) PO PRN ×2 (03:24→13:11)
[2017-01-22] MEDS: ACETAMINOPHEN 500 MG TAB PO SCH ×2 (05:52→14:14)
[2017-01-22 07:32] VITALS: BP 144/73; PULSE 56; TEMP 36.6; O2SAT 96
[2017-01-22 07:34] LABS: BUN/CREATININE RATIO 24.6 (10-20); CALCIUM 8.4 mg/dl (8.5-10.1); CREATININE 0.74 mg/dl (0.60-1.20); POTASSIUM 3.9 mmol/L (3.5-5.1)
[2017-01-22 08:00] VITALS: O2SAT 96
--- NOTE | 2017-01-22 08:44 | Orthopedic Progress Note ---
Orthopedic Progress Note Date of Service Jan 22, 2017. Subjective Post OP Day: 2 Reports: feeling well, Denies: chest pain, SOB, nausea / vomiting, light headedness, calf pain Objective calves soft nontender, N/V intact, incision C/D/I, A&O x3, toes mobile Date Time Temp Pulse Resp B/P (MAP) Pulse Ox O2 Delivery O2 Flow Rate FiO2 01/22/17 07:32 36.6 56 16 144/73 (96) 96 Room Air 01/22/17 00:30 Room Air 01/21/17 23:26 36.4 68 16 113/72 (86) 96 Room Air 01/21/17 21:05 Room Air 01/21/17 15:02 36.8 51 16 124/60 (81) 95 Room Air 01/21/17 14:02 37.0 58 16 115/63 (80) 98 Room Air 01/21/17 13:49 36.7 56 20 95 01/21/17 12:09 Room Air 01/21/17 10:52 36.7 56 20 130/61 (84) 95 Room Air Laboratory Results 24 Hours: Test 01/22/17 06:40 Hematocrit 27.0 % Hemoglobin 8.6 g/dL Assessment & Plan Assessment: POD 2 s/p Right TKA Per Cardiology Service: 1. Elevated troponin I with intraoperative inferolateral ST segment depression in a patient with suspected underlying CAD (based on December 2015 nuclear stress test). 2. Presumed CAD. 3. Hypertension. 4. Dyslipidemia. 5. Postoperative day #1 right total knee arthroplasty. 6. No angina pectoris or anginal equivalent symptoms. 7. No signs or symptoms of heart failure. 8. No symptoms suggestive of dysrhythmia. 9. Beta kalina induced bradycardia, asymptomatic. Plan: Will discuss with Cards about any med changes. Continue current protocol [place] [facility] [place] for Home Health Services- [facility] TODAY Inhouse Planning Pain Management: PO Tylenol, Oxy IR DVT Prophylaxis: TEDs, SCDs, ASA Discharge Planning Discharge Planning: home with home health Pain Management: PO Tylenol, Oxy IR DVT Prophylaxis: TEDs, ASA Therapy: Physical Therapy
--- NOTE | 2017-01-22 08:45 | Clinical Documentation Query ---
CLINICAL DOCUMENTATION QUERY 67-y/o who has undergone cemented right TKR. Patient had Inferolateral ST segment depression intraoperatively and postoperatively and subsequent +Troponin's In your clinical opinion is this patient being managed for: ( ) Type II PA in setting of surgical stress and volume loss treated with cardiology consult, telemetry, Echo, ASA, Toprol ( ) Not Agree ( X ) Other explanation of clinical findings (Please Explain) Myocardial O2 supply / demand mismatch in setting of surgery induced hyperadrenergic state in a patient with presumed CAD. ( ) Unable to determine (Please Define) ( ) Need to Discuss The medical record reflects the following clinical findings, treatment, and risk factors. Clinical Indicators: Inferolateral ST segment depression intraoperatively and postoperatively. Troponin's 0.083, 0.102, 0.079, Hgb 5.6, Hct 27.0, Treatment: cardiology consult, transfer to telemetry, Echo, ASA, Toprol Risk Factors: Age, presumed CAD, abnormal stress test, surgical stress, acute blood loss anemia Types of PA's Type 1: spontaneous PA related to ischemia d/t a primary coronary event (plaque erosion, dissection) *Type 2: PA related to ischemia associated with increased O2 demand or decreased supply *Type 3: sudden unexpected cardiac *Type 4: associated with PCI/Stents *Type 4a: PA d/t PCI *Type 4b: PA d/t stent thrombosis *Type 5: PA associated with CABG Reference: Trinh Garcia, Florinda JS, Antoni LEVI (February 2007). "L[place]comb definition of myocardial infarction". Eur. Heart J. 28 (20): 2525-38. doi:10.1093/eurheartj/nxj058. PMID 31853021. http://eurheartj.oxfordjournals.org/content/.full Please clarify and document your clinical opinion in the progress notes and discharge summary. Terms such as "probable", "suspected", "likely", "questionable", "possible", or "still to be ruled out" are acceptable. IF IN AGREEMENT, YOU MUST DOCUMENT ABOVE DIAGNOSTIC STATEMENT IN DAILY PROGRESS NOTES AND DISCHARGE SUMMARY. This document is not part of the patient's record. Thank You, Usman Tyler RN [phone]
[2017-01-22] MEDS ORDERED: RXC5 PO (08:47)
[2017-01-22] MEDS ORDERED: LPT40 PO (08:47)
[2017-01-22] MEDS ORDERED: TPRSR25 PO (08:47)
[2017-01-22] MEDS ORDERED: ACET-24 PO (08:47)
[2017-01-22] MEDS ORDERED: ASPEC81 PO (08:47)
--- NOTE | 2017-01-22 08:49 | Clinical Documentation Query ---
CLINICAL DOCUMENTATION QUERY 67-y/o who has undergone cemented right TKR. Patient had Inferolateral ST segment depression intraoperatively and postoperatively and subsequent +Troponin's In your clinical opinion is this patient being managed for: ( ) Type II W[place] in setting of surgical stress and volume loss treated with cardiology consult, telemetry, Echo, ASA, Toprol ( ) Not Agree ( ) Other explanation of clinical findings (Please Explain) ( ) Unable to determine (Please Define) ( ) Need to Discuss The medical record reflects the following clinical findings, treatment, and risk factors. Clinical Indicators: Inferolateral ST segment depression intraoperatively and postoperatively. Troponin's 0.083, 0.102, 0.079, Hgb 5.6, Hct 27.0, Treatment: cardiology consult, transfer to telemetry, Echo, ASA, Toprol Risk Factors: Age, presumed CAD, abnormal stress test, surgical stress, acute blood loss anemia Please clarify and document your clinical opinion in the progress notes and discharge summary. Terms such as "probable", "suspected", "likely", "questionable", "possible", or "still to be ruled out" are acceptable. IF IN AGREEMENT, YOU MUST DOCUMENT ABOVE DIAGNOSTIC STATEMENT IN DAILY PROGRESS NOTES AND DISCHARGE SUMMARY. This document is not part of the patient's record. Thank You, Usman Tyler RN [phone]
--- NOTE | 2017-01-22 08:50 | Discharge Instructions ---
Discharge Instructions Date of Service Jan 22, 2017. Admission Reason for Admission: Right Knee Osteoarthritis Discharge Discharge Diagnosis / Problem: SP RIGHT TKA Discharge Goals Goal(s): Decrease discomfort, Improve function, Increase independence Activity Recommendations Activity Limitations: per Instructions/Follow-up section . Instructions / Follow-Up Instructions / Follow-Up Dr. Casper Total Knee Replacement Discharge Instructions Silverlon dressing stays on for seven days. It must be changed if it is soaked . This can be replaced with gauze and an MAT Wrap. Otherwise if not soaked, it stays on for 7 days. Patients my shower after 2 days if the Silverlon is on because it is waterproof, but not Spa proof. If the silver one had to be removed then patient should wait 5 days to shower. Quick showers, not Spa Time! After 7 days, please wipe wound with gauze and peroxide once daily. ICE and ELEVATE constantly. If a drain is in place, it is removed when less than 10cc for 2 consecutive 8 hr shifts in a day. Do not go to the ER to remove drain. Any qualified home nurse or therapist can remove the drain. IF GABRIELE device in place, please see the instruction sheet. Also, every Home Nursing Agency, Home PT, and Rehab is aware how this works. If your home nurse or therapist says they don't know want this is, have them call you [facility] or the network operations project manager right away, it is meant to protect and help your incision heal faster. Please read the Do's and Don'ts sheet. This paper and the Do's and Don'ts are the most important. The rest of your paperwork from hospital is redundant and or confusing. This is the info I want you to take to heart. I typically give you 5 prescriptions. Some are Eprescribed to your pharmacy already. They are: 1. Oxycodone or some form of a narcotic pain pill. Please take. Most important. 2. Coumadin / Lovenox as per your project engineer chemicals. 3. Tylenol 4. Zofran-this is for nausea, take if you need. 5. Celebrex-helps with inflammation, if not covered by insurance, then use ibuprofen 600 mg, 2 to 3 times a day. TAKE ASPIRIN 81MG TWICE DAILY X 4 WEEKS. If any problems or concerns, please call [facility] (Or Saima Landaverde if she is your coordinator) FIRST. DO not go to the ER unless directed by your U Physician or it's an absolute emergency. Our phone numbers are located all throughout the your U packet. YOUR NEW KNEE: DO'S AND DON'TS This is an instruction sheet for you to follow once discharged after your new knee replacement. We tried our best to include all common questions and concerns following surgery. DO - Get up and walk several times daily. This is important for muscle recovery and also helps prevent blood clots. Walking is encouraged as long as the muscles are not becoming too sore. DO - Find a comfortable sleeping position. You may sleep on your side or you're back. You may not need to place a pillow between your legs, however, some find this more comfortable. DO - TAKE YOUR PAIN MEDS as Prescribed, If you're having pain but aren't taking your pain pills, there isn't much more we can do for you! DO - Use your walker/cane until you feel you can ambulate safely without it. This may take days or weeks depending on your lifestyle. DO - Wait until you're completely comfortable using your cane before driving a vehicle. You should be able to react quickly with your operative leg. If you had right knee replacement you may want to wait a week or two. If you haven't left knee replacement you may drive as soon as you feel comfortable. 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 Should lay flat so your leg is higher than your heart with 3 to 4 pillows. This will significantly help with swelling. DO - Apply ice to the knee for the first few weeks after returning home. Use ice on Knee, calf, thigh, anywhere on your way back is sore. After that, most people find moist heat to be more beneficial. DO - Take a shower! You were permitted to shower after surgery. Use only mild soap and water when cleaning your incisions. Silverlon dressing usually removed after seven days, it is water resistant. DON"T - Be alarmed if you pain in your upper thigh area. This is most likely from the [place] it will use during surgery. DON"T - Be afraid to take pain medications. Pain management is a very important part of your recovery. Initially, take pain medicine as prescribed by your doctor. In time you will need less medication to be comfortable. DON"T - Wait until you are out of medication to request a refill. Be sure to allow at least 24 hours for a new prescription. The new [place] law does not allow for us to call in narcotics of any type anymore. You will have to come to your office for a live prescription. You will not be able to get Narcotic pills over the weekend. It is a good idea to check with the pharmacy before picking up medications. DON"T - Get discouraged if you were not getting better "fast enough". You will continue to see improvements for up to a year!! The office can be reached at [phone]. The answering service can be reached at [phone]. If you're experiencing an emergency go to the ER or call 911. Current Hospital Diet Patient's current hospital diet: Regular Diet Discharge Diet Recommended Diet: Regular Diet Procedures Procedures Performed: Right Total Knee Arthroplasty Pending Studies Studies pending at discharge: no Medical Emergencies . Who to Call and When: Medical Emergencies: If at any time you feel your situation is an emergency, please call 911 immediately. . Non-Emergent Contact Non-Emergency issues call your: Surgeon . "Provider Documentation" section prepared by Cady Morris. . VTE Core Measure Inpt VTE Proph given/why not?: Other Anticoagulation, T.E.DAugustus Jeronimo, SCD's
[2017-01-22] MEDS: ATORVASTATIN 40 MG TAB PO SCH (08:51)
[2017-01-22] MEDS: DOCUSATE SODIUM 100 MG CAP PO SCH (08:51)
[2017-01-22] MEDS: ASPIRIN 81 MG ECTAB PO SCH (08:51)
[2017-01-22] MEDS: HYDROCHLOROTHIAZIDE 25 MG TAB PO SCH (08:51)
[2017-01-22] MEDS: GABAPENTIN 100 MG CAP PO SCH ×2 (08:52→14:13)
[2017-01-22] MEDS: ONDANSETRON INJ 2 MG/ML 2 ML VIAL IV PRN (08:54)
[2017-01-22] MEDS ORDERED: METOPROLOL SUCC 25MG EXT REL TAB PO SCH (09:00)
--- NOTE | 2017-01-22 10:03 | CARDIOLOGY PROGRESS NOTE ---
DATE: 01/22/2017 DATE: 01/22/2017 HISTORY OF PRESENT ILLNESS: Ms. Paniagua is a very pleasant 67-year-old white female with history of sleep apnea, hypertension, dyslipidemia, abnormal nuclear stress test December 2015 (showing a small area of lateral ischemia, rest LVEF 64% and stress LVEF of greater than 75% with normal wall motion), and osteoarthritis status post right TKA 2 days ago. During her surgical procedure she was noted to have ST depression in the monitor leads. Subsequently underwent an EKG which showed downsloping to horizontal ST segment depressions in leads 2, AVF, and V3 through V6 -- consider inferior/inferolateral ischemia. She subsequently bumped her troponin I level to a peak of 0.102 ng/mL, but it was trending down as of yesterday. The patient was on the monitor and remains stable from a heart rhythm standpoint. She had no further EKG changes. She remained completely asymptomatic throughout her visit. She did not experience any chest discomfort, angina pectoris, chest pain, dyspnea, nausea, vomiting, or diaphoresis whatsoever during her hospitalization. She continues to perform physical therapy and has not experienced any limiting cardiopulmonary symptoms. PHYSICAL EXAMINATION: VITAL SIGNS: Temperature is 36.6 degrees Celsius, pulse 56 and regular, respiratory rate 16 and unlabored, blood pressure is 144/73, SPO2 is 96% on room air. GENERAL: The patient in no acute distress. HEAD, EYES, EARS, NOSE, AND THROAT: Head is atraumatic, normocephalic. EOMs intact. Sclerae are anicteric. Faces symmetric. No perioral cyanosis. Mucous membranes moist. NECK: Without thyromegaly, adenopathy or JVD. Carotid upstrokes +2 bilaterally without bruits. CHEST AND LUNGS: Clear to auscultation throughout all lung zabala, no wheezes, rales or rhonchi. CARDIOVASCULAR: S1 and S2 are regular without murmur, gallop or rub. PMI is nondisplaced. No lifts, heaves, or thrills. No abdominal, aortic or renal bruits. ABDOMINAL EXAMINATION: Bowel sounds are present. No masses, organomegaly, or tenderness. EXTREMITIES: Without clubbing, cyanosis, or edema. Right knee is dressed. NEUROLOGIC EXAMINATION: The patient is awake, alert and oriented. Pleasant and cooperative. Answers questions appropriately. Speech is clear. Normal movement in all 4 extremities. Gait pattern not assessed. LABORATORY DATA: Hemoglobin 8.6 g/dl, hematocrit 27.0%. Sodium is 137 mmol/L, potassium 3.9 mmol/L, BUN is 18 mg/dL, creatinine 0.74 mg/dL. ASSESSMENT: 1. Elevated troponin I with inferior/inferolateral ST segment depression intra- and postoperatively in a patient with suspected underlying coronary artery disease (based on December 2015 nuclear stress test). probably demand ischemia (Myocardial O2 supply / demand mismatch in the setting of surgery induced hyperadrenergic state in a patient with presumed CAD. Follow up Echocardiogram showed NORMAL LV systolic function and NORMAL wall motion. 2. Presumed coronary artery disease. 3. Hypertension, controlled. 4. Dyslipidemia. 5. Postoperative day #2 right total knee arthroplasty. 6. Acute blood loss anemia. Hemoglobin 8.6 g/dL, asymptomatic. 7. No angina pectoris or anginal equivalent symptoms. 8. No signs or symptoms of heart failure. 9. No symptoms related to bradycardia. 10. Beta kalina induced bradycardia, asymptomatic. PLAN: 1. Reiterated our findings and appropriate treatment regimens. 2. Continue aspirin 81 mg daily indefinitely. 3. Continue Lipitor 40 mg daily indefinitely. 4. Continue Toprol-XL 12.5 mg once daily. 5. Continue hydrochlorothiazide daily. 6. Continue with outpatient physical therapy as she recovers from her knee surgery. 7. The patient has decided that she will follow up with us cardiologically. She is scheduled for a follow-up appointment with myself and Dr. Palmer on 04/23/2017 at 10:30 a.m. 8. The patient is stable for discharge to home from a cardiac standpoint. NUNU
[2017-01-22 11:00] VITALS: BP 144/73; PULSE 56; TEMP 36.6; O2SAT 96
[2017-01-22 15:21] VITALS: BP 111/60; PULSE 55; TEMP 36.9; O2SAT 96
--- NOTE | 2017-01-28 08:47 | DISCHARGE SUMMARY ---
DISCHARGE DIAGNOSIS: Degenerative joint disease, right knee. SECONDARY DIAGNOSIS: Acute blood loss anemia, hyperlipidemia and rheumatoid arthritis. CONSULTS: Dr. Palmer. COMPLICATIONS: None. PROCEDURE: The patient underwent a right total knee arthroplasty with Dr. Casper on 01/20/2017. BRIEF HISTORY: Please see previously dictated history and physical. HOSPITAL SUMMARY: The patient was admitted on the above day for the above procedure. Procedure went without complication. Postop day 1, the patient was feeling well without complaints. She denied chest pain or shortness of breath. Vital signs were stable. She was afebrile. Dressing was clean, dry and intact. She was neurovascularly intact. Calves were soft and nontender. The patient had some cardiology issues perioperatively. She was seen by cardiology today and they would like to keep her 1 more day, but she is being transferred to the medical floor. Postop day 2, the patient was feeling well without complaints. She denied chest pain or shortness of breath. Vital signs were stable. She was afebrile. Incision was clean, dry and intact. She was neurovascularly intact. Calves were soft and nontender. Hemoglobin was 8.6. The patient continued to improve. She was discharged home later that day in stable condition. For further review please see the chart. Lab, x-ray data and discharge instructions as per chart.
== END 2017-01-22 16:30 | disposition home health service (06) | DRG 470 ==
LOC: C.ACU 05:07 → C.2T 06:40 → ENRESERV 11:00 → C.MSW 01-21 14:05
PROVIDERS: ADMIT Orthopaedic Surgery; ATTEND Orthopaedic Surgery
PROC: 0SRC0J9 Replacement of Right Knee Joint with Synthetic Substitute, Cemented, Open Approach (ICD-10-PCS; principal; 2017-01-20 07:00)
DX: M17.11 Unilateral primary osteoarthritis, right knee (principal); D62 Acute posthemorrhagic anemia; I24.8 Other forms of acute ischemic heart disease; I10 Essential (primary) hypertension; E78.5 Hyperlipidemia, unspecified; G47.33 Obstructive sleep apnea (adult) (pediatric); M26.609 Unspecified temporomandibular joint disorder, unspecified side; R94.31 Abnormal electrocardiogram [ECG] [EKG]; R79.89 Other specified abnormal findings of blood chemistry; E78.00 Pure hypercholesterolemia, unspecified; R20.0 Anesthesia of skin; M54.5 Low back pain; I87.2 Venous insufficiency (chronic) (peripheral); I25.10 Atherosclerotic heart disease of native coronary artery without angina pectoris; I07.1 Rheumatic tricuspid insufficiency; T44.7X5A Adverse effect of beta-adrenoreceptor antagonists, initial encounter; H91.90 Unspecified hearing loss, unspecified ear; M06.9 Rheumatoid arthritis, unspecified; Z82.49 Family history of ischemic heart disease and other diseases of the circulatory system; Z99.89 Dependence on other enabling machines and devices; Z91.19 Patient's noncompliance with other medical treatment and regimen; Z79.899 Other long term (current) drug therapy; Z79.891 Long term (current) use of opiate analgesic; Z79.1 Long term (current) use of non-steroidal anti-inflammatories (NSAID)